=== PATIENT | female | born 1980 | race Caucasian/White ===

== ENCOUNTER 2019-03-24 08:43 | Outpatient (CLI) | payer OTHER | END 2019-03-24 08:50 | disposition home or self-care (01) | LOC: MAMO-SONO 08:43 | DX: Z12.31 Encounter for screening mammogram for malignant neoplasm of breast (principal); Z87.898 Personal history of other specified conditions; N64.4 Mastodynia; N60.09 Solitary cyst of unspecified breast; N63.10 Unspecified lump in the right breast, unspecified quadrant; N63.20 Unspecified lump in the left breast, unspecified quadrant ==